=== PATIENT | male | born 1980 | race African-American/Black ===

== ENCOUNTER 2017-05-24 16:08 | Emergency (ER) | payer OTHER ==
[~2017-05-24] VITALS: Ht 180.3 cm; Wt 95.3 kg
[~2017-05-24 16:08] MED LIST: ACYC800T PO; HYDR-548 PO; IBUP-1957 PO; ZOLP10TA2 PO
[2017-05-24] MEDS: IBUPROFEN 600 MG TABLET PO ONE (17:05)
[2017-05-24] MEDS: HYDROCODONE/APAP 5-325MG TABLET PO ONE (17:26)
[2017-05-24] MEDS ORDERED: HYDROCODONE/APAP 5-325MG TABLET ONE (17:36)
--- NOTE | 2017-05-24 18:25 | NUR ---
MSE COMPLETED, PT D/C'D HOMR, ACI/RX X2/WORK NOTE GIVEN. PT AMBULATED W/O DIFF/TOOK AL BELONGINGS. PT STATED DECREASED PAIN.
[2017-05-24 18:28] VITALS: BP 122/66
== END 2017-05-24 18:29 | disposition home or self-care (01) ==
LOC: ER 16:12
DX: S53.402A Unspecified sprain of left elbow, initial encounter (principal); F10.20 Alcohol dependence, uncomplicated; F17.200 Nicotine dependence, unspecified, uncomplicated; Z88.6 Allergy status to analgesic agent; X58.XXXA Exposure to other specified factors, initial encounter; Y93.89 Activity, other specified; Y99.8 Other external cause status; Y92.89 Other specified places as the place of occurrence of the external cause
CPT/HCPCS: 73060; 73080; 73090; 73110; A4663

== ENCOUNTER 2017-05-30 17:37 | Emergency (ER) | payer OTHER ==
[~2017-05-30] VITALS: Ht 180.3 cm; Wt 95.3 kg
--- NOTE | 2017-05-30 18:20 | NUR ---
DR العراقي AT THE BEDSIDE FOR EVAL AND EXAM.
--- NOTE | 2017-05-30 18:47 | NUR ---
PT WAS D/C TO HOME. D/C INSTRUCTIONS GIVEN TO THE PT.
[2017-05-30 18:48] VITALS: BP 131/72
== END 2017-05-30 18:48 | disposition home or self-care (01) ==
LOC: ER 17:59
DX: M25.522 Pain in left elbow (principal); F10.20 Alcohol dependence, uncomplicated; F17.200 Nicotine dependence, unspecified, uncomplicated; Z88.6 Allergy status to analgesic agent
CPT/HCPCS: 99283; A4663

== ENCOUNTER 2019-07-19 08:16 | Emergency (ER) | payer OTHER ==
[~2019-07-19] VITALS: Ht 180.3 cm; Wt 81.6 kg
[2019-07-19] MEDS ORDERED: IBUPROFEN 600 MG TABLET ONE (08:45)
[2019-07-19] MEDS ORDERED: IBUPROFEN 600 MG TABLET PO ONE (08:45)
[2019-07-19] MEDS ORDERED: HYDROCODONE/APAP 5-325MG TABLET PO ONE (08:45)
[2019-07-19] MEDS ORDERED: ACYCLOVIR 400 MG TABLET PO ONE (08:45)
[2019-07-19] MEDS ORDERED: HYDROCODONE/APAP 5-325MG TABLET ONE (08:47)
--- NOTE | 2019-07-19 08:47 | NUR ---
Patient discharged to home in stable conditon with brisk steady gait. Written and verbal after care instructions given to patient. Patient verbalizes understanding of instructions.
== END 2019-07-19 08:49 | disposition home or self-care (01) ==
LOC: ER 08:16
DX: B00.9 Herpesviral infection, unspecified (principal); F17.200 Nicotine dependence, unspecified, uncomplicated; Z88.8 Allergy status to other drugs, medicaments and biological substances
CPT/HCPCS: A4663